=== PATIENT | female | born 1940 | race Caucasian/White ===

== ENCOUNTER 2016-07-20 19:19 | Observation (INO) | payer OTHER ==
[~2016-07-20] VITALS: Ht 165.1 cm; Wt 95.2 kg
[2016-07-20 20:08] LABS: HEMATOCRIT 42.4 % (36.0-46.0); MCH 30.3 PG (29.0-34.0); MCHC 33.3 G/DL (30.0-36.0); MEAN PLAT.VOLUME 11.2 uM^3 (9.5-12.4); PLATELET COUNT 253 K/uL (156-360); RBC DIS.WIDTH-CV 12.4 % (11.8-14.6); RBC DIS.WIDTH-SD 40.8 % (39-53); RED BLOOD COUNT 4.66 M/uL (3.80-5.20); WHITE BLOOD COUNT 7.2 K/uL (4.1-10.2)
[2016-07-20 20:18] LABS: CHLORIDE 109 mEq/L (99-109); POTASSIUM 4.4 mEq/L (3.7-5.4); SODIUM 144 mEq/L (136-147)
[2016-07-20 20:19] LABS: GLUCOSE 101 mg/dL (70-99)
[2016-07-20 20:21] LABS: ANION GAP 9 MEQ/L (2-14)
[2016-07-20 20:23] LABS: GFR ESTIMATE (CALCULATED) > 59 mL/min/
[2016-07-20 20:24] LABS: UREA NITROGEN (BUN) 24 mg/dL (9-23)
[2016-07-20 20:30] LABS: TROP-I INTERPRETATION NEGATIVE; TROPONIN-I < 0.01 ng/mL (0.0-0.30)
[2016-07-20] MEDS ORDERED: TYLENOL EXTRA500 MG PO (22:14)
[2016-07-21] VITALS (14 sets, daily range): BP systolic 114–191; BP diastolic 56–87
[2016-07-21 06:24] LABS: HDL CHOLESTEROL 57 MG/DL (Desirable>=50); LDL CHOLESTEROL 101 mg/dL (Desirable<100); NON-HDL CHOLESTEROL 115 mg/dL (Desirable<160); TOTAL CHOLESTEROL 172 mg/dL (Desirable<200); TRIGLYCERIDES 68 MG/DL (Normal: <150)
[2016-07-21 06:39] LABS: TROP-I INTERPRETATION NEGATIVE; TROPONIN-I < 0.01 ng/mL (0.0-0.30)
[2016-07-21 09:39] LABS: Estimated Average Glucose 100 mg/dL (70-123); HEMOGLOBIN A1c (GLYCOHEMOGLOB) 5.1 % HGB (Below 5.7)
[2016-07-21 12:18] LABS: TROP-I INTERPRETATION NEGATIVE; TROPONIN-I < 0.01 ng/mL (0.0-0.30)
[2016-07-22 00:20] VITALS: BP 133/60
[2016-07-22 04:20] VITALS: BP 123/67
[2016-07-22 08:26] VITALS: BP 141/83
[2016-07-22 08:52] LABS: TROP-I INTERPRETATION NEGATIVE; TROPONIN-I < 0.01 ng/mL (0.0-0.30)
[2016-07-22] MEDS ORDERED: LOPRESSOR25 MG PO (11:25)
[2016-07-22] MEDS ORDERED: ATORVASTATIN CA40 MG PO (11:25)
[2016-07-22] MEDS ORDERED: ASPIRIN81 M2 PO (11:26)
[2016-07-22] MEDS ORDERED: ALPRAZOLAM0.25 M2 PO (11:31)
[2016-07-22 11:39] VITALS: BP 129/65
== END 2016-07-22 12:08 | disposition home or self-care (01) ==
LOC: EME 19:19 → 4EAST 20:53 → EDOF 20:53 → 4EAST 23:46
PROVIDERS: Emergency Medicine; Hospitalist; Internal Medicine Cardiovascular Disease; Physician Assistant Medical
DX: R07.89 Other chest pain (principal); R94.31 Abnormal electrocardiogram [ECG] [EKG]; M25.511 Pain in right shoulder; M25.512 Pain in left shoulder; F41.0 Panic disorder [episodic paroxysmal anxiety]; K21.9 Gastro-esophageal reflux disease without esophagitis; I10 Essential (primary) hypertension; Z82.49 Family history of ischemic heart disease and other diseases of the circulatory system; E66.9 Obesity, unspecified; Z68.35 Body mass index [BMI] 35.0-35.9, adult
CPT/HCPCS: 71020; 71275; 80048; 80061; 82948; 83036; 83880; 84484; 85027; 93005; 99281; 99285; G0378; J1650; J2270; J2405